=== PATIENT | male | born 1975 | race Caucasian/White ===

== ENCOUNTER 2021-05-04 06:29 | Observation (INO) | payer BC ==
[2021-05-03 10:47] LABS: BASOPHILS % 0.6 % (0.0-1.0); EOSINOPHILS # (AUTO) 0.1 (0.0-0.4); HEMATOCRIT 49.7 % (38.2-49.6); HEMOGLOBIN 15.8 g/dL (14.0-18.0); LYMPHOCYTES # (AUTO) 1.9 (1.0-3.2); MEAN CORPUSCULAR HGB CONC 31.8 g/dL (31-35); MEAN CORPUSCULAR VOLUME 94.5 fL (81-99); MONOCYTES # (AUTO) 0.5 (0.2-0.8); MONOCYTES % 7.9 % (4.4-11.3); NEUTROPHILS % 60.4 % (38.7-80.0); PLATELET COUNT 257 x10e3/uL (140-360); RED BLOOD COUNT 5.26 x10e6/uL (4.3-5.7); RED CELL DISTRIBUTION WIDTH 13.3 % (11.7-14.4)
[2021-05-03 10:48] LABS: INR 0.85; PROTHROMBIN TIME 12.3 seconds (11.9-14.5)
[2021-05-03 10:49] LABS: PARTIAL THROMBOPLASTIN TIME 25.7 seconds (23.8-35.5)
[2021-05-03 10:54] LABS: ANION GAP 13.6 mmol/L (8-16); CALCIUM 9.7 mg/dL (8.4-10.2); CREATININE, SERUM 0.91 mg/dL (0.72-1.25); POTASSIUM 4.6 mmol/L (3.5-5.1)
[~2021-05-04] VITALS: Ht 185.4 cm; Wt 99.8 kg
[~2021-05-04 06:29] MED LIST: CYCLOBENZAPRINE5 MG PO; HYDROCODON-ACE1 EA12 PO; ULTRAM 50MG50 MG PO
[2021-05-04] MEDS ORDERED: Vancomycin IV 1 GM VIAL ONE (06:36)
[2021-05-04] MEDS ORDERED: THROMBIN FOR SOLN 5,000 UNIT VIAL ONE (06:36)
[2021-05-04] MEDS ORDERED: LIDOCAINE 1% W/EPINEPHRINE 20 ML VIAL ONE (06:36)
[2021-05-04] MEDS ORDERED: SODIUM CHLORIDE 0.9% 50ML 100 ML ONE (07:25)
[2021-05-04] MEDS ORDERED: FENTANYL CITRATE/PF 100MCG/2 ML INJ ONE (08:23)
[2021-05-04] MEDS ORDERED: MIDAZOLAM HCL 2 MG/2 ML VIAL ONE (08:23)
[2021-05-04] MEDS ORDERED: SUGAMMADEX SODIUM 200 MG/2 ML VIAL IV ONE (10:17)
[2021-05-04] MEDS ORDERED: DEXMEDETOMIDINE HCL 2 ML ONE (10:18)
[2021-05-04] MEDS ORDERED: SODIUM CHLORIDE 0.9% 100 ML ONE (10:32)
[2021-05-04] MEDS ORDERED: HYDROCODON-ACE1 EA12 PO (11:10)
[2021-05-04] MEDS ORDERED: CARISOPRODOL 350 MG TAB PO PRN (11:15)
[2021-05-04] MEDS ORDERED: ACETAMINOPHEN 325 MG TAB PO PRN (11:15)
[2021-05-04] MEDS ORDERED: ONDANSETRON HCL INJ 2MG/ML 2ML 2 MG/ML VIAL IV PRN (11:15)
[2021-05-04] MEDS ORDERED: PROMETHAZINE HCL (IM) 25 MG/ML VIAL IM PRN (11:15)
[2021-05-04] MEDS ORDERED: HYDROMORPHONE 2MG/ML 2 MG/ML ML IV PRN (11:15)
[2021-05-04] MEDS ORDERED: OXYCODONE/ACETAMINOPHEN 5-325 1 EACH TABLET PO PRN (11:15)
[2021-05-04] MEDS ORDERED: MEPERIDINE HCL INJ 25 MG/ML VIAL IV PRN (11:15)
[2021-05-04] MEDS ORDERED: MAGNESIUM/ALUMINUM/SIMETHICONE 30 ML UDC PO PRN (11:15)
[2021-05-04] MEDS ORDERED: LIDOCAINE HCL 2% LOCAL INJ 5 ML SDV VIAL INJ ONE (14:00)
[2021-05-04] MEDS ORDERED: SEVOFLURANE INHAL SOLN 250 ML PEN BTL ONE (14:00)
[2021-05-04] MEDS ORDERED: POVIDONE IODINE 0.05% 0.05 % ML PO ONE (14:00)
[2021-05-04] MEDS ORDERED: ONDANSETRON HCL INJ 2MG/ML 2ML 2 MG/ML VIAL ONE (14:00)
[2021-05-04] MEDS ORDERED: ROCURONIUM BROMIDE 10 MG/ML 5ML VIAL IV ONE (14:00)
[2021-05-04] MEDS ORDERED: PROPOFOL IV EMULSION 10 MG/ML 20 ML VIAL ONE (14:00)
[2021-05-04] MEDS ORDERED: DEXAMETHASONE SOD PHOS INJ 4 MG/ML SDV ONE (14:00)
[2021-05-04 14:52] VITALS: BP 127/79
[2021-05-04 16:05] VITALS: BP 127/90
[2021-05-04] MEDS: Cefazolin 1 GM in SODIUM CHLORIDE 0.9% 50ML 50 ML IV SCH (17:21)
[2021-05-04] MEDS: LACTATED RINGER'S 1,000 ML IV SCH ×2 (17:21→19:35)
[2021-05-04 17:36] VITALS: BP 127/90
[2021-05-04 20:00] VITALS: BP 126/82
[2021-05-04 20:40] VITALS: BP 126/82
[2021-05-04] MEDS ORDERED: ZOLPIDEM TARTRATE 5 MG TAB PO PRN (21:00)
[2021-05-05] VITALS: BP 124/71
[2021-05-05] MEDS: Cefazolin 1 GM in SODIUM CHLORIDE 0.9% 50ML 50 ML IV SCH ×2 (00:53→09:00)
[2021-05-05 04:00] VITALS: BP 108/57
[2021-05-05 08:00] VITALS: BP 129/91
[2021-05-05 08:12] VITALS: BP 129/91
== END 2021-05-05 09:45 | disposition home or self-care (01) ==
LOC: OR 06:29 → PACU V 11:03 → MED/SURG 14:40
PROVIDERS: ADMIT Neurological Surgery; ATTEND Neurological Surgery
DX: M50.122 Cervical disc disorder at C5-C6 level with radiculopathy (principal); I10 Essential (primary) hypertension; Z87.891 Personal history of nicotine dependence; E78.5 Hyperlipidemia, unspecified; Z01.810 Encounter for preprocedural cardiovascular examination; Z01.812 Encounter for preprocedural laboratory examination; Z01.818 Encounter for other preprocedural examination; Z20.822 Contact with and (suspected) exposure to COVID-19
CPT/HCPCS: 20931; 22551; 22845; 36415 ×2; 71046; 72040; 77003; 80048; 82948; 85025; 85610; 85730; 86850; 86900; 88304; 88311; 93005; C1713 ×2; G0378 ×2; J0690 ×2; J1100; J2001; J2250; J2405; J2704; J3010; J3370; J7050; J7121; U0002; J2550